=== PATIENT | female | born 1935 | race Caucasian/White ===

== ENCOUNTER 2022-07-21 11:18 | Inpatient (IN) | payer MEDICARE ==
[2022-07-21] MEDS ORDERED: Acetaminophen 650 MG Suppository PR PRN (11:41)
[2022-07-21 14:37] VITALS: BMI 28.1
[2022-07-21] MEDS ORDERED: cefTRIAXone\\ROCEPHIN 1 GM in Sodium Chloride 0.9% 100 ML IVPB SCH (14:45)
[2022-07-21] MEDS: Acetaminophen 325 MG TAB PO PRN (15:12)
[2022-07-21] MEDS ORDERED: Azithromycin 500 MG in Sodium Chloride 0.9% 250 ML 250 ML IVPB SCH (16:00)
[2022-07-21] MEDS ORDERED: Azithromycin 500 MG VIAL ONE (17:22)
[2022-07-21] MEDS ORDERED: Enoxaparin Sodium 40 MG/0.4 ML SYRINGE SC SCH (21:00)
[2022-07-21] MEDS: Chlorhexidine Gluconate 15 ML UDCUP SSP SCH (21:29)
[2022-07-22] MEDS: Acetaminophen 325 MG TAB PO PRN ×3 (00:05→23:23)
[2022-07-22 04:20] LABS: #Eosinphils 0.2 10x3/uL (0.0-0.5); #Monocytes 0.5 10x3/uL (0.0-1.1); #Neutrophils 5.7 10x3/uL (1.5-8.4); %Basophils 0.4 % (0.0-2.0); %Eosinophils 3.2 % (0.0-6.0); %Lymphocytes 13.3 % (18.0-47.0); %Monocytes 6.4 % (0.0-10.0); %Neutrophils 75.9 % (40.0-75.0); Hemoglobin 9.3 g/dL (12.0-15.5); Mean Corpuscular HGB CONC 32.2 g/dL (32.0-36.0); Mean Corpuscular Volume 93.2 fl (81.6-98.3); Mean Platelet Volume 8.6 fl (7.4-10.4); Platelet Count 271 10x3/uL (150-450); RBC Distribution Width 15.5 % (11.5-14.5); White Blood Cell (WBC) Count 7.5 10x3/uL (3.5-10.5)
[2022-07-22 04:35] LABS: SARS-CoV-2 NAA Rapid Test Not Detected (NotDetected)
[2022-07-22 04:39] LABS: Anion Gap 14 mmol/L (10-20); BUN (Urea Nitrogen) 6 mg/dL (9.8-20.1); Calc. Creatinine Clearance 70 mL/min (70-130); Calcium 8.3 mg/dL (7.8-10.44); Carbon Dioxide 25 mmol/L (23-31); Chloride 100 mmol/L (98-107); Estimated GFR 86; Glucose 103 mg/dL (83-110); Potassium 3.4 mmol/L (3.5-5.1); Sodium 136 mmol/L (136-145)
[2022-07-22] MEDS ORDERED: Triamterene/Hydrochlorothiazide 37.5 mg/25 mg Tablet PO SCH (10:00)
[2022-07-22] MEDS: Chlorhexidine Gluconate 15 ML UDCUP SSP SCH ×2 (11:38→20:47)
[2022-07-22] MEDS ORDERED: Iopamidol 370 76% 100 ML VIAL ONE (13:58)
[2022-07-22] MEDS: Phenazopyridine HCl 95 MG TAB PO SCH ×2 (14:10→18:08)
[2022-07-22] MEDS: cefTRIAXone\\ROCEPHIN 1 GM in Sodium Chloride 0.9% 100 ML IVPB SCH (18:03)
[2022-07-22] MEDS: Azithromycin 500 MG in Sodium Chloride 0.9% 250 ML 250 ML IVPB SCH (20:46)
[2022-07-22] MEDS: Enoxaparin Sodium 80 MG/0.8 ML SYRINGE SC SCH (20:47)
[2022-07-22] MEDS: Nitrofurantoin Monohyd/M-Cryst 100 MG CAP PO SCH (20:48)
[2022-07-23 04:20] LABS: #Eosinphils 0.4 10x3/uL (0.0-0.5); #Monocytes 0.4 10x3/uL (0.0-1.1); #Neutrophils 6.1 10x3/uL (1.5-8.4); %Basophils 0.5 % (0.0-2.0); %Eosinophils 5.4 % (0.0-6.0); %Lymphocytes 13.1 % (18.0-47.0); %Monocytes 5.4 % (0.0-10.0); %Neutrophils 74.6 % (40.0-75.0); Hemoglobin 9.9 g/dL (12.0-15.5); Mean Corpuscular HGB CONC 31.9 g/dL (32.0-36.0); Mean Corpuscular Hemoglobin 29.8 pg (27.0-33.0); Mean Corpuscular Volume 93.4 fl (81.6-98.3); Mean Platelet Volume 8.3 fl (7.4-10.4); Platelet Count 324 10x3/uL (150-450); RBC Distribution Width 15.5 % (11.5-14.5); Red Blood Cell (RBC) Count 3.32 10x6/uL (3.90-5.03); White Blood Cell (WBC) Count 8.2 10x3/uL (3.5-10.5)
[2022-07-23 04:32] LABS: Anion Gap 14 mmol/L (10-20); BUN (Urea Nitrogen) 6 mg/dL (9.8-20.1); Calc. Creatinine Clearance 71 mL/min (70-130); Calcium 8.7 mg/dL (7.8-10.44); Carbon Dioxide 24 mmol/L (23-31); Chloride 100 mmol/L (98-107); Estimated GFR 86; Glucose 107 mg/dL (83-110); Potassium 3.2 mmol/L (3.5-5.1); Sodium 135 mmol/L (136-145)
[2022-07-23] MEDS ORDERED: Enoxaparin Sodium 80 MG/0.8 ML SYRINGE ONE (08:13)
[2022-07-23] MEDS: Acetaminophen 325 MG TAB PO PRN (09:03)
[2022-07-23] MEDS: Nitrofurantoin Monohyd/M-Cryst 100 MG CAP PO SCH ×2 (09:05→20:38)
[2022-07-23] MEDS: Phenazopyridine HCl 95 MG TAB PO SCH ×3 (09:07→17:40)
[2022-07-23] MEDS: Enoxaparin Sodium 80 MG/0.8 ML SYRINGE SC SCH ×2 (09:10→20:39)
[2022-07-23] MEDS: Triamterene/Hydrochlorothiazide 37.5 mg/25 mg Tablet PO SCH (09:11)
[2022-07-23] MEDS: Chlorhexidine Gluconate 15 ML UDCUP SSP SCH ×2 (09:11→20:38)
[2022-07-23] MEDS ORDERED: Potassium Chloride 20 MEQ TAB PO SCH (09:15)
[2022-07-23] MEDS: Azithromycin 500 MG in Sodium Chloride 0.9% 250 ML 250 ML IVPB SCH (17:40)
[2022-07-23] MEDS: Ondansetron PF 4 MG/2 ML Vial IVP PRN (18:07)
[2022-07-24] MEDS: Methocarbamol 500 MG TAB PO PRN ×2 (00:01→21:05)
[2022-07-24 05:52] LABS: Anion Gap 14 mmol/L (10-20); BUN (Urea Nitrogen) 7 mg/dL (9.8-20.1); Calc. Creatinine Clearance 71 mL/min (70-130); Calcium 8.8 mg/dL (7.8-10.44); Carbon Dioxide 23 mmol/L (23-31); Chloride 99 mmol/L (98-107); Estimated GFR 86; Glucose 104 mg/dL (83-110); Potassium 3.6 mmol/L (3.5-5.1); Sodium 132 mmol/L (136-145)
[2022-07-24 06:02] LABS: #Eosinphils 0.6 10x3/uL (0.0-0.5); #Monocytes 0.5 10x3/uL (0.0-1.1); #Neutrophils 6.4 10x3/uL (1.5-8.4); %Basophils 0.5 % (0.0-2.0); %Eosinophils 6.5 % (0.0-6.0); %Lymphocytes 12.1 % (18.0-47.0); %Monocytes 5.6 % (0.0-10.0); %Neutrophils 73.5 % (40.0-75.0); Hemoglobin 9.9 g/dL (12.0-15.5); Mean Corpuscular HGB CONC 31.7 g/dL (32.0-36.0); Mean Corpuscular Hemoglobin 29.4 pg (27.0-33.0); Mean Corpuscular Volume 92.6 fl (81.6-98.3); Mean Platelet Volume 8.3 fl (7.4-10.4); Platelet Count 344 10x3/uL (150-450); RBC Distribution Width 15.2 % (11.5-14.5); Red Blood Cell (RBC) Count 3.37 10x6/uL (3.90-5.03); White Blood Cell (WBC) Count 8.7 10x3/uL (3.5-10.5)
[2022-07-24] MEDS ORDERED: Furosemide 20 MG/2 ML VIAL SLOW IVP SCH (09:45)
[2022-07-24] MEDS: Phenazopyridine HCl 95 MG TAB PO SCH ×4 (10:41→18:31)
[2022-07-24] MEDS: Propranolol 10 MG TAB PO PRN (10:41)
[2022-07-24] MEDS: Triamterene/Hydrochlorothiazide 37.5 mg/25 mg Tablet PO SCH (10:42)
[2022-07-24] MEDS: Enoxaparin Sodium 80 MG/0.8 ML SYRINGE SC SCH ×2 (10:43→21:44)
[2022-07-24] MEDS: Chlorhexidine Gluconate 15 ML UDCUP SSP SCH ×2 (10:44→21:30)
[2022-07-24] MEDS: Nitrofurantoin Monohyd/M-Cryst 100 MG CAP PO SCH (10:49)
[2022-07-24] MEDS: Ondansetron ODT 4 MG TAB PO PRN (13:46)
[2022-07-24] MEDS ORDERED: Ondansetron ODT 4 MG TAB PO SCH (17:30)
[2022-07-24] MEDS: cefTRIAXone\\ROCEPHIN 1 GM in Sodium Chloride 0.9% 100 ML IVPB SCH (18:02)
[2022-07-24] MEDS: Azithromycin 500 MG in Sodium Chloride 0.9% 250 ML 250 ML IVPB SCH (20:01)
[2022-07-25] MEDS: Methocarbamol 500 MG TAB PO PRN ×2 (04:20→21:20)
[2022-07-25 04:46] LABS: #Basophils 0.1 10x3/uL (0.0-0.2); #Eosinphils 0.8 10x3/uL (0.0-0.5); #Monocytes 0.5 10x3/uL (0.0-1.1); #Neutrophils 5.9 10x3/uL (1.5-8.4); %Basophils 0.6 % (0.0-2.0); %Eosinophils 9.3 % (0.0-6.0); %Monocytes 6.1 % (0.0-10.0); %Neutrophils 68.9 % (40.0-75.0); Hemoglobin 10.3 g/dL (12.0-15.5); Mean Corpuscular HGB CONC 31.7 g/dL (32.0-36.0); Mean Corpuscular Hemoglobin 29.3 pg (27.0-33.0); Mean Corpuscular Volume 92.6 fl (81.6-98.3); Mean Platelet Volume 8.2 fl (7.4-10.4); Platelet Count 370 10x3/uL (150-450); RBC Distribution Width 15.3 % (11.5-14.5); Red Blood Cell (RBC) Count 3.51 10x6/uL (3.90-5.03); White Blood Cell (WBC) Count 8.5 10x3/uL (3.5-10.5)
[2022-07-25 04:48] LABS: Anion Gap 17 mmol/L (10-20); BUN (Urea Nitrogen) 9 mg/dL (9.8-20.1); Calc. Creatinine Clearance 58 mL/min (70-130); Calcium 8.5 mg/dL (7.8-10.44); Carbon Dioxide 21 mmol/L (23-31); Chloride 97 mmol/L (98-107); Estimated GFR 78; Glucose 111 mg/dL (83-110); Potassium 3.6 mmol/L (3.5-5.1); Sodium 131 mmol/L (136-145)
[2022-07-25] MEDS: Apixaban 5 MG TAB PO SCH ×2 (09:52→21:19)
[2022-07-25] MEDS: Chlorhexidine Gluconate 15 ML UDCUP SSP SCH ×2 (09:52→21:19)
[2022-07-25] MEDS: Triamterene/Hydrochlorothiazide 37.5 mg/25 mg Tablet PO SCH (09:54)
[2022-07-25] MEDS: Phenazopyridine HCl 95 MG TAB PO SCH (09:54)
[2022-07-25] MEDS: cefTRIAXone\\ROCEPHIN 1 GM in Sodium Chloride 0.9% 100 ML IVPB SCH (18:18)
[2022-07-25] MEDS: Azithromycin 250 MG TAB PO SCH (18:18)
[2022-07-25] MEDS: Acetaminophen 325 MG TAB PO PRN (23:50)
[2022-07-26 06:50] LABS: #Eosinphils 0.7 10x3/uL (0.0-0.5); #Monocytes 0.5 10x3/uL (0.0-1.1); #Neutrophils 4.6 10x3/uL (1.5-8.4); %Basophils 0.6 % (0.0-2.0); %Lymphocytes 15.9 % (18.0-47.0); %Monocytes 6.7 % (0.0-10.0); %Neutrophils 65.8 % (40.0-75.0); Hemoglobin 10.5 g/dL (12.0-15.5); Mean Corpuscular HGB CONC 32.7 g/dL (32.0-36.0); Mean Corpuscular Hemoglobin 30.1 pg (27.0-33.0); Mean Platelet Volume 8.2 fl (7.4-10.4); Platelet Count 391 10x3/uL (150-450); RBC Distribution Width 15.4 % (11.5-14.5); Red Blood Cell (RBC) Count 3.49 10x6/uL (3.90-5.03)
[2022-07-26 06:55] LABS: Anion Gap 14 mmol/L (10-20); BUN (Urea Nitrogen) 14 mg/dL (9.8-20.1); Calc. Creatinine Clearance 62 mL/min (70-130); Calcium 8.9 mg/dL (7.8-10.44); Carbon Dioxide 23 mmol/L (23-31); Chloride 97 mmol/L (98-107); Estimated GFR 83; Glucose 105 mg/dL (83-110); Potassium 3.6 mmol/L (3.5-5.1); Sodium 130 mmol/L (136-145)
[2022-07-26] MEDS: Triamterene/Hydrochlorothiazide 37.5 mg/25 mg Tablet PO SCH (10:13)
[2022-07-26] MEDS: Chlorhexidine Gluconate 15 ML UDCUP SSP SCH ×2 (10:13→21:17)
[2022-07-26] MEDS: Apixaban 5 MG TAB PO SCH ×2 (10:14→21:17)
[2022-07-26] MEDS: Propranolol 10 MG TAB PO PRN ×2 (10:19→17:12)
[2022-07-26] MEDS ORDERED: Furosemide 40 MG/4 ML VIAL SLOW IVP SCH (14:00)
[2022-07-26] MEDS: Ondansetron ODT 4 MG TAB PO PRN (15:18)
[2022-07-26] MEDS: cefTRIAXone\\ROCEPHIN 1 GM in Sodium Chloride 0.9% 100 ML IVPB SCH (18:07)
[2022-07-26] MEDS: Ondansetron PF 4 MG/2 ML Vial IVP PRN (21:17)
[2022-07-26] MEDS: Methocarbamol 500 MG TAB PO PRN (21:17)
[2022-07-26] MEDS: Azithromycin 250 MG TAB PO SCH (21:17)
[2022-07-27] MEDS: Acetaminophen 325 MG TAB PO PRN ×3 (02:09→22:54)
[2022-07-27 04:16] LABS: #Basophils 0.1 10x3/uL (0.0-0.2); #Eosinphils 0.9 10x3/uL (0.0-0.5); #Monocytes 0.6 10x3/uL (0.0-1.1); #Neutrophils 6.6 10x3/uL (1.5-8.4); %Basophils 0.5 % (0.0-2.0); %Eosinophils 9.2 % (0.0-6.0); %Lymphocytes 13.6 % (18.0-47.0); %Neutrophils 69.8 % (40.0-75.0); Hemoglobin 10.2 g/dL (12.0-15.5); Mean Corpuscular HGB CONC 32.9 g/dL (32.0-36.0); Mean Corpuscular Hemoglobin 29.4 pg (27.0-33.0); Mean Corpuscular Volume 89.3 fl (81.6-98.3); Mean Platelet Volume 8.2 fl (7.4-10.4); Platelet Count 426 10x3/uL (150-450); RBC Distribution Width 14.9 % (11.5-14.5); Red Blood Cell (RBC) Count 3.47 10x6/uL (3.90-5.03); White Blood Cell (WBC) Count 9.5 10x3/uL (3.5-10.5)
[2022-07-27] MEDS: Ondansetron PF 4 MG/2 ML Vial IVP PRN (04:27)
[2022-07-27 04:28] LABS: ALT (SGPT) 24 U/L (8-55); AST (SGOT) 37 U/L (5-34); Albumin 3.1 g/dL (3.4-4.8); Alkaline Phosphatase 106 U/L (40-110); Anion Gap 14 mmol/L (10-20); BUN (Urea Nitrogen) 19 mg/dL (9.8-20.1); Bilirubin, Total 0.3 mg/dL (0.2-1.2); Calc. Creatinine Clearance 56 mL/min (70-130); Calcium 8.7 mg/dL (7.8-10.44); Carbon Dioxide 25 mmol/L (23-31); Chloride 90 mmol/L (98-107); Estimated GFR 74; Globulin 3.7 g/dL (2.4-3.5); Glucose 117 mg/dL (83-110); Magnesium 1.8 mg/dL (1.6-2.6); Potassium 3.4 mmol/L (3.5-5.1); Protein, Total 6.8 g/dL (5.8-8.1); Sodium 126 mmol/L (136-145)
[2022-07-27] MEDS: Methocarbamol 500 MG TAB PO PRN ×2 (05:09→21:00)
[2022-07-27] MEDS ORDERED: Mag-Al 1200 mg/1200 mg/30 ML UDCUP PO SCH (05:15)
[2022-07-27] MEDS: Chlorhexidine Gluconate 15 ML UDCUP SSP SCH ×2 (09:00→21:02)
[2022-07-27] MEDS: Sodium Chloride 1 GM TAB PO SCH ×2 (09:00→22:00)
[2022-07-27] MEDS: Apixaban 5 MG TAB PO SCH ×2 (09:00→21:01)
[2022-07-27] MEDS ORDERED: Polyethylene Glycol 3350 17 GM Packet PO PRN (10:14)
[2022-07-27] MEDS ORDERED: Bisacodyl 5 MG TAB PO PRN (10:14)
[2022-07-27] MEDS: Ondansetron ODT 4 MG TAB PO PRN ×2 (12:00→19:16)
[2022-07-27] MEDS ORDERED: Mag-Al Plus 1200 MG/1200 MG/120 MG/30 ML UDCUP PO PRN (15:34)
[2022-07-27] MEDS: Propranolol 10 MG TAB PO PRN (18:28)
[2022-07-27] MEDS: Sodium Chloride 0.9% 1,000 ML IV SCH (18:54)
[2022-07-28 04:47] LABS: #Eosinphils 0.7 10x3/uL (0.0-0.5); #Monocytes 0.6 10x3/uL (0.0-1.1); %Basophils 0.3 % (0.0-2.0); %Eosinophils 8.3 % (0.0-6.0); %Lymphocytes 15.3 % (18.0-47.0); %Monocytes 6.7 % (0.0-10.0); %Neutrophils 68.5 % (40.0-75.0); Hemoglobin 10.3 g/dL (12.0-15.5); Mean Corpuscular HGB CONC 32.8 g/dL (32.0-36.0); Mean Corpuscular Hemoglobin 29.6 pg (27.0-33.0); Mean Corpuscular Volume 90.2 fl (81.6-98.3); Mean Platelet Volume 8.1 fl (7.4-10.4); Platelet Count 471 10x3/uL (150-450); RBC Distribution Width 15.1 % (11.5-14.5); Red Blood Cell (RBC) Count 3.48 10x6/uL (3.90-5.03); White Blood Cell (WBC) Count 8.8 10x3/uL (3.5-10.5)
[2022-07-28 04:58] LABS: Anion Gap 13 mmol/L (10-20); BUN (Urea Nitrogen) 13 mg/dL (9.8-20.1); Calc. Creatinine Clearance 66 mL/min (70-130); Calcium 8.8 mg/dL (7.8-10.44); Carbon Dioxide 29 mmol/L (23-31); Chloride 91 mmol/L (98-107); Estimated GFR 85; Glucose 102 mg/dL (83-110); Potassium 3.5 mmol/L (3.5-5.1); Sodium 129 mmol/L (136-145)
[2022-07-28] MEDS: Sodium Chloride 0.9% 1,000 ML IV SCH (05:08)
[2022-07-28] MEDS: Acetaminophen 325 MG TAB PO PRN (10:10)
[2022-07-28] MEDS: Sodium Chloride 1 GM TAB PO SCH ×2 (10:11→10:14)
[2022-07-28] MEDS: Apixaban 5 MG TAB PO SCH ×2 (10:13→21:58)
[2022-07-28] MEDS: Chlorhexidine Gluconate 15 ML UDCUP SSP SCH ×2 (10:13→21:58)
[2022-07-28] MEDS: Ondansetron PF 4 MG/2 ML Vial IVP PRN (11:35)
[2022-07-28] MEDS: Metoclopramide 10 MG/10 ML UDCUP PO SCH ×2 (16:06→21:58)
[2022-07-28] MEDS: Methocarbamol 500 MG TAB PO PRN (22:39)
[2022-07-29] MEDS: Sodium Chloride 0.9% 1,000 ML IV SCH (02:00)
[2022-07-29 03:39] LABS: #Eosinphils 0.5 10x3/uL (0.0-0.5); #Monocytes 0.6 10x3/uL (0.0-1.1); #Neutrophils 5.3 10x3/uL (1.5-8.4); %Basophils 0.4 % (0.0-2.0); %Eosinophils 6.4 % (0.0-6.0); %Lymphocytes 17.4 % (18.0-47.0); %Neutrophils 66.9 % (40.0-75.0); Hemoglobin 9.5 g/dL (12.0-15.5); Mean Corpuscular Hemoglobin 29.6 pg (27.0-33.0); Mean Corpuscular Volume 92.5 fl (81.6-98.3); Mean Platelet Volume 8.1 fl (7.4-10.4); Platelet Count 423 10x3/uL (150-450); RBC Distribution Width 15.1 % (11.5-14.5); Red Blood Cell (RBC) Count 3.21 10x6/uL (3.90-5.03); White Blood Cell (WBC) Count 7.9 10x3/uL (3.5-10.5)
[2022-07-29 03:55] LABS: Anion Gap 9 mmol/L (10-20); BUN (Urea Nitrogen) 10 mg/dL (9.8-20.1); Calc. Creatinine Clearance 73 mL/min (70-130); Calcium 8.5 mg/dL (7.8-10.44); Carbon Dioxide 29 mmol/L (23-31); Chloride 93 mmol/L (98-107); Estimated GFR 87; Glucose 105 mg/dL (83-110); Magnesium 1.8 mg/dL (1.6-2.6); Potassium 3.3 mmol/L (3.5-5.1); Sodium 128 mmol/L (136-145)
[2022-07-29] MEDS: Apixaban 5 MG TAB PO SCH ×2 (08:26→20:50)
[2022-07-29] MEDS: Methocarbamol 500 MG TAB PO PRN (08:27)
[2022-07-29] MEDS: Metoclopramide 10 MG/10 ML UDCUP PO SCH ×4 (08:28→20:40)
[2022-07-29] MEDS: Sodium Chloride 1 GM TAB PO SCH ×2 (08:29→22:06)
[2022-07-29] MEDS: Chlorhexidine Gluconate 15 ML UDCUP SSP SCH ×2 (08:29→20:40)
[2022-07-29] MEDS: Diazepam 5 MG TAB PO PRN (10:32)
[2022-07-29] MEDS ORDERED: Lorazepam 0.5 MG TAB PO SCH (19:45)
[2022-07-29] MEDS: Acetaminophen 325 MG TAB PO PRN (20:42)
[2022-07-30] MEDS ORDERED: Benzonatate 100 MG CAP PO PRN (08:16)
[2022-07-30] MEDS: Apixaban 5 MG TAB PO SCH (08:18)
[2022-07-30] MEDS: Metoclopramide 10 MG/10 ML UDCUP PO SCH (08:18)
[2022-07-30] MEDS: Diazepam 5 MG TAB PO PRN (08:21)
[2022-07-30] MEDS: Acetaminophen 325 MG TAB PO PRN (08:59)
[2022-07-30 09:26] VITALS: BP 146/88; TEMP 98.2
== END 2022-07-30 09:14 | DRG 175 ==
LOC: INTOOBSV 11:18 → CSHTELE 11:18 → OBSVTOIN 07-22 09:17 → INTOOBSV 07-22 09:17
PROVIDERS: ADMIT Internal Medicine; ATTEND Family Medicine
DX: I26.99 Other pulmonary embolism without acute cor pulmonale (principal); J18.9 Pneumonia, unspecified organism; J96.01 Acute respiratory failure with hypoxia; J90 Pleural effusion, not elsewhere classified; E87.1 Hypo-osmolality and hyponatremia; C77.9 Secondary and unspecified malignant neoplasm of lymph node, unspecified; Z66 Do not resuscitate; Z51.5 Encounter for palliative care; G89.29 Other chronic pain; M54.9 Dorsalgia, unspecified; J84.10 Pulmonary fibrosis, unspecified; C50.912 Malignant neoplasm of unspecified site of left female breast; F41.9 Anxiety disorder, unspecified; E89.0 Postprocedural hypothyroidism; K59.00 Constipation, unspecified; K12.0 Recurrent oral aphthae; I10 Essential (primary) hypertension; Z20.822 Contact with and (suspected) exposure to COVID-19; T14.8XXD Other injury of unspecified body region, subsequent encounter; S69.91XA Unspecified injury of right wrist, hand and finger(s), initial encounter; R53.81 Other malaise; Y93.39 Activity, other involving climbing, rappelling and jumping off; Z88.8 Allergy status to other drugs, medicaments and biological substances; Z79.899 Other long term (current) drug therapy; Z90.49 Acquired absence of other specified parts of digestive tract; Z91.81 History of falling
CPT/HCPCS: 36415; 71045; 71275; 80048; 80053; 83735; 83880; 84145; 84484; 85025; 85379; 87070; 87205; 87633; 87811; 93306; 94640; 94760; 96372; 96374; 96375; G0378; J0456; J0696; J1650; J1940; J2405; J3490; J7050; J7620; Q0162; Q9967